=== PATIENT | male | born 2000 | race Two or more races ===

== ENCOUNTER 2023-09-04 18:29 | Emergency (ER) | payer OTHER ==
[~2023-09-04] VITALS: Ht 175.3 cm; Wt 77.0 kg
[2023-09-04 19:45] VITALS: BP 143/100; PULSE 66; RESP 16; O2SAT 97
== END 2023-09-04 21:16 | disposition left against medical advice (07) ==
LOC: ER 18:29
DX: F41.9 Anxiety disorder, unspecified (principal); Z53.21 Procedure and treatment not carried out due to patient leaving prior to being seen by health care provider